=== PATIENT | male | born 1965 | race Caucasian/White ===

== ENCOUNTER → 2017-06-10 | Day surgery (SDC) | payer OTHER ==
[~2017-06-10] VITALS: Ht 177.8 cm; Wt 85.2 kg
[~2017-06-10] MED LIST: *morphine SULFATE 4 MG/ML PERIprocedure ONLY ONE; ACETAMINOPHEN 1000 MG/100 ML 100 ML IV ONE; ACETAMINOPHEN 1000 MG/100 ML 100 ML IV SCH; ATEN50TA PO; BUPIVACAINE/EPINEPHRINE 0.25% 50 ML VIAL ONE; CHLORHEXIDINE GLUCONATE 2 % 1 PACK (2 CLOTHS) TOPICAL PRN; DEXAMETHASONE SOD PHOS 20 MG/5 ML VIAL ONE; DEXAMETHASONE SOD PHOS 4 MG/ML VIAL IV ONE; DO NOT ADM ANY ANTICOAGULANT DRUGS PRN; FAMOTIDINE 20 MG/2 ML VIAL ONE; GLYCOPYRROLATE 1 MG/5 ML SYRINGE IV PUSH ONE; KETOROLAC TROMETHAMINE 30 MG/ML (IVP) VIAL IV PUSH ONE; LACTATED RINGER'S 1000 ML INJ 2,000 ML IV ONE; LACTATED RINGER'S 1000 ML IV PRN; LAMO100T PO; LIDOCAINE HCL 1% PF 5 ML SYRINGE OTHER ONE; METOPROLOL TARTRATE 25 MG TAB PO PRN; MIDAZOLAM HCL 2 MG/2 ML VIAL ONE; MORPHINE SULFATE 4 MG/ML INJ IV PUSH PRN; NIFE30TA61 PO; ONDANSETRON HCL 4 MG/2 ML VIAL IV ONE; ONDANSETRON HCL 4 MG/2 ML VIAL IV PUSH PRN; PANT40TA3 PO; POVIDONE IODINE 5% (ANTISEPSIS KIT) 4 APPLICATIONS EACH NARE PRN; PROPOFOL 200 MG/20 ML AMP IV ONE; ROCURONIUM INJ 50 MG/5 ML SYRINGE IV PUSH ONE; ROPIVACAINE 0.5% PF INJ 30 ML VIAL ONE; SODIUM CHLORID 0.9% 500 ML IV PRN; SODIUM CHLORIDE 0.9% FLUSH 10 ML FLUSH IV FLUSH PRN; SODIUM CHLORIDE 0.9% FLUSH 10 ML FLUSH IV FLUSH SCH; SUGAMMADEX SODIUM 200 MG/2 ML VIAL IV PUSH ONE; ceFAZolin 2 GM PREMIX 50 ML IV SCH; oxyCODONE/ACETAMINOPHEN 5 MG/325 MG TAB PO PRN
--- NOTE | 2017-06-10 12:58 | PD.OP ---
cc: Delonte Landa MD Operative Report Date of Surgery: Jun 10, 2017 Preoperative Diagnosis: (1) Umbilical hernia Postoperative Diagnosis: (1) Umbilical hernia Procedure: Laparoscopic umbilical hernia repair with mesh Anesthesia: SEAN Surgeon: Delonte Landa Ibm Bpm Architect(s): Adeola SIMPSON Operation and Findings: EBL: 10 cc Operative findings: 1-2 cm umbilical hernia associated with diastasis recti Procedure in detail: The patient was taken to the operating room and placed in supine position. Gen. endotracheal anesthesia was induced. The abdomen was prepped and draped in usual sterile fashion and a surgical timeout was performed to verify correct patient procedure and site. Appropriate perioperative antibiotics were administered. In the left upper abdomen a 10 mm incision was made after infiltration with local anesthetic. Blunt dissection was carried out to the underlying fascia which was visualized and sharply incised. The peritoneum was entered bluntly. The GelPort 10 mm balloon trocar was inserted. The abdomen was insufflated to 15 mmHg which the patient tolerated well. A 5 mm port balloon was placed in the left lower abdomen, right lower abdomen, and right upper abdomen all under laparoscopic visualization and after infiltration with local anesthetic.. Attention was turned to umbilicus. There was a 1-2 cm umbilical defect incarcerated with preperitoneal fat. Peritoneum surrounding the hernia was incised with Harmonic scalpel and fatty tissue removed from approximately the umbilicus, laterally to the edge of the rectus muscles and superiorly. Preperitoneal fat was reduced from the hernia defect as well as the hernia sac itself. A 6 inch piece of ventral light ST mesh on the echo deployment system was chosen. The mesh was saturated with saline, rolled on the device, and placed through the 10 mm port into the abdomen. Local anesthetic was injected just superior to the hernia and a small skin cholo created. The Cylinder suture passer was used to enter the abdomen and grasp the blue catheter which was brought out of the abdomen. The syringe was placed on the catheter and the deployment system inflated with air. The catheter was brought up to the anterior abdominal wall. Next, the Secure strap tacker was used to place tacks at 4 corners of the deployment device. The green skeleton of the device was then removed. Tacks were placed circumferentially around the mesh as well as throughout the midportion of the mesh. It was taut against the abdominal wall with wide coverage of the hernia defect. At this point the abdomen was allowed to desufflate and trochars were removed. The fascia of the left upper quadrant incision was closed in 2 layers with 0 Vicryl suture. The skin was closed with subcuticular 4-0 Monocryl suture as well as Dermabond. An abdominal binder was placed. The patient tolerated the procedure well was extubated and taken to PACU in stable condition. Delonte Landa MD Jun 10, 2017 12:58
[2017-06-10 14:48] VITALS: BP 155/97; PULSE 59; RESP 18; TEMP 97.4; O2SAT 98
== END | disposition home or self-care (01) ==
LOC: HSDC 09:01
PROVIDERS: ATTEND Surgery
DX: K42.0 Umbilical hernia with obstruction, without gangrene (principal); I70.0 Atherosclerosis of aorta; J40 Bronchitis, not specified as acute or chronic; K21.9 Gastro-esophageal reflux disease without esophagitis; I10 Essential (primary) hypertension; N52.9 Male erectile dysfunction, unspecified; K44.9 Diaphragmatic hernia without obstruction or gangrene; K76.0 Fatty (change of) liver, not elsewhere classified; G47.9 Sleep disorder, unspecified; H10.9 Unspecified conjunctivitis
CPT/HCPCS: 00750; 49653; 64486; C1781; J0131; J0690; J1100; J2250; J2270; J2795; J3010; J7120; J1885; J2405